=== PATIENT | female | born 1995 | race African-American/Black ===

== ENCOUNTER → 2024-05-01 | Outpatient (CLI) | payer OTHER, SELFPAY | LOC: M IRPRO 10:00 | PROVIDERS: ATTEND Surgery | DX: R59.0 Localized enlarged lymph nodes (principal); Z53.9 Procedure and treatment not carried out, unspecified reason ==

== ENCOUNTER → 2024-09-13 | Outpatient (CLI) | payer OTHER | LOC: M RAD 13:27 | PROVIDERS: ATTEND Radiology Diagnostic Radiology | DX: R59.0 Localized enlarged lymph nodes (principal) ==

== ENCOUNTER 2024-10-04 06:26 | Inpatient (IN) | payer OTHER ==
[~2024-10-04] VITALS: Ht 170.2 cm; Wt 66.0 kg
[2024-10-04] MEDS ORDERED: ISOVUE-370 76% 100ML VIAL As Ordered ONE (07:37)
[2024-10-04 07:40] LABS: BASO % 0.5 % (0.0-1.0); EOS % 0.7 % (0.0-3.0); HEMATOCRIT 29.2 % (36.0-47.0); HEMOGLOBIN 8.5 g/dl (12.0-15.5); LYMPH # 1.8 10^3/uL (1.5-5.0); LYMPH % 32.9 % (24.0-44.0); MEAN CORPUSCULAR HEMOGLOBIN 21.3 pg (27.0-33.0); MEAN CORPUSCULAR HGB CONC 29.1 g/dl (32.0-36.5); MEAN CORPUSCULAR VOLUME 73.2 fl (80.0-96.0); MONO # 0.4 10^3/uL (0.0-0.8); MONO % 7.5 % (2.0-8.0); NEUTROPHILS # 3.2 10^3/uL (1.5-8.5); NEUTROPHILS % 58.2 % (36.0-66.0); PLATELET COUNT, AUTOMATED 326 10^3/uL (150-450); RED BLOOD COUNT 3.99 10^6/uL (4.00-5.40); WHITE BLOOD COUNT 5.6 10^3/uL (4.0-10.0)
[2024-10-04 07:53] LABS: INR 1.04; PARTIAL THROMBOPLASTIN TIME 28.4 SECONDS (24.8-34.2)
[2024-10-04] MEDS: ACETAMINOPHEN *IV* 1,000 MG in IV 1 EA IV ONE (09:58)
[2024-10-04] MEDS ORDERED: FERR325T3 PO (10:32)
[2024-10-04] MEDS ORDERED: HOME MED LIST COMPLETE! XX SCH (10:35)
[2024-10-04] MEDS ORDERED: ACETAMINOPHEN 325 MG TAB PO PRN (11:40)
[2024-10-04] MEDS: ASPIRIN 81MG CHEW TABLET PO ONE (12:18)
[2024-10-04] MEDS: NS (Normal Saline) 0.9% 1,000 ML IV ONE (12:18)
[2024-10-04] MEDS: ENOXAPARIN 40MG/0.4ML SYRINGE (J1650 PER 10MG) SC SCH (12:19)
[2024-10-04 13:20] LABS: HEMOGLOBIN A1c 5.7 % (4.0-6.0)
[2024-10-04 13:27] LABS: IRON (FE) 12 UG/DL (50-170); PERCENT SATURATION 2.9 % (13.2-45.0); RHEUMATOID FACTOR QUANT < 3.5 IU/ML (<14); TOTAL IRON BINDING CAPACITY 409 UG/DL (250-425)
[2024-10-04 13:28] LABS: BLOOD UREA NITROGEN 13 MG/DL (9-23); CALCIUM LEVEL 8.6 MG/DL (8.5-10.1); CARBON DIOXIDE LEVEL 25 MMOL/L (20-31); CHLORIDE LEVEL 103 MMOL/L (98-107); CHOLESTEROL LEVEL 128 MG/DL (<200); CHOLESTEROL RISK RATIO 3.47 (<5); CREATININE FOR GFR 0.74 MG/DL (0.55-1.30); GLOMERULAR FILTRATION RATE > 60.0 (>60); GLUCOSE, FASTING 80 MG/DL (60-100); HDL CHOLESTEROL 36.8 MG/DL (>40); LDL CHOLESTEROL 79.8 MG/DL (<100); NON-HDL-C 91.2 MG/DL; POTASSIUM SERUM 3.6 MMOL/L (3.5-5.1); SODIUM LEVEL 141 MMOL/L (136-145); TRIGLYCERIDES LEVEL 57 MG/DL (<150)
[2024-10-04 13:29] LABS: FERRITIN 2.7 NG/ML (7.3-270.7); FOLATE 8.36 NG/ML (>5.4)
[2024-10-04 13:30] LABS: VITAMIN B12 LEVEL 397 PG/ML (211-911)
[2024-10-04 13:31] LABS: C REACTIVE PROTEIN QUANTITATIV < 0.50 MG/DL (<1.0)
[2024-10-04] MEDS: DOCUSATE SODIUM 100MG CAPSULE PO SCH (20:55)
[2024-10-04] MEDS: ATORVASTATIN 20 MG TAB PO SCH (21:00)
[2024-10-05] MEDS: FERROUS SULFATE 325MG TAB PO SCH (08:06)
[2024-10-05] MEDS: CLOPIDOGREL 75 MG TAB PO SCH (08:06)
[2024-10-05] MEDS: ASPIRIN 81MG ENTERIC TABLET PO SCH (08:07)
[2024-10-05] MEDS: NS (Normal Saline) 0.9% 1,000 ML IV ONE (08:44)
[2024-10-05 08:56] LABS: BASO % 0.6 % (0.0-1.0); EOS # 0.1 10^3/uL (0.0-0.5); EOS % 1.5 % (0.0-3.0); HEMATOCRIT 28.8 % (36.0-47.0); HEMOGLOBIN 8.2 g/dl (12.0-15.5); LYMPH # 2.2 10^3/uL (1.5-5.0); LYMPH % 41.3 % (24.0-44.0); MEAN CORPUSCULAR HEMOGLOBIN 21.1 pg (27.0-33.0); MEAN CORPUSCULAR HGB CONC 28.5 g/dl (32.0-36.5); MEAN CORPUSCULAR VOLUME 74.2 fl (80.0-96.0); MONO # 0.3 10^3/uL (0.0-0.8); MONO % 6.3 % (2.0-8.0); NEUTROPHILS # 2.6 10^3/uL (1.5-8.5); NEUTROPHILS % 50.1 % (36.0-66.0); PLATELET COUNT, AUTOMATED 323 10^3/uL (150-450); RED BLOOD COUNT 3.88 10^6/uL (4.00-5.40); WHITE BLOOD COUNT 5.3 10^3/uL (4.0-10.0)
[2024-10-05] MEDS ORDERED: ASPIRIN 81MG CHEW TABLET PO SCH (09:00)
[2024-10-05] MEDS ORDERED: CLOP75TA2 PO (10:52)
[2024-10-05] MEDS ORDERED: ASPI81TAEC PO (10:52)
[2024-10-05] MEDS ORDERED: ATOR1TAB19 PO (10:52)
[2024-10-05 11:15] VITALS: BP 116/61
[2024-10-05 11:18] VITALS: O2SAT 100
[2024-10-05 11:35] LABS: DRVV SCREEN 36.6 SECONDS
[2024-10-05 11:39] VITALS: TEMP 98.8
[2024-10-05 11:47] LABS: PTT LUPUS TYPE ANTICOAG SCREEN 0.9 (0-1.20)
[2024-10-05 14:33] LABS: SSA SJOGRENS A <1.0 NEG AI (<1.0 NEG); SSB SJOGRENS B <1.0 NEG AI (<1.0 NEG)
[2024-10-05 15:22] LABS: HOMOCYST(E)INE SERUM 10.9 umol/L (<10.4)
[2024-10-05 22:43] LABS: CARDIOLIPIN IGA ANTIBODY < 2.0 APL-U/mL (<20.0); CARDIOLIPIN IGG ANTIBODY < 2.0 GPL-U/mL (<20.0); CARDIOLIPIN IGM ANTIBODY 2.3 MPL-U/mL (<20.0)
[2024-10-06 13:43] LABS: ANA SCREEN, IFA NEGATIVE (NEGATIVE)
[2024-10-07 17:57] LABS: ANCA SCREEN Negative (Negative)
[2024-10-09 18:57] LABS: FACTOR V111 ACTIVITY, CLOTTING 120 % normal (50-180); FACTOR VIII APTT 28 sec (23-32); RISTOCETIN COFACTOR 117 % normal (42-200); VW FACTOR ANTIGEN 111 % (50-217)
== END 2024-10-05 11:50 | disposition home or self-care (01) | DRG 66 ==
LOC: EDBD 06:26 → M ED 06:26 → M ED INP 11:38
PROVIDERS: ADMIT Internal Medicine Nephrology; ATTEND Internal Medicine Nephrology
DX: I63.9 Cerebral infarction, unspecified (principal); D50.9 Iron deficiency anemia, unspecified; Z79.899 Other long term (current) drug therapy

== ENCOUNTER 2025-08-10 08:26 | Day surgery (SDC) | payer OTHER ==
[~2025-08-10] VITALS: Ht 167.6 cm; Wt 68.7 kg
[~2025-08-10 08:26] MED LIST: ASPI81TAEC PO; ATOR1TAB19 PO; CLOP75TA2 PO; ECOT81TA5 PO; FERR325T3 PO; NAPR-1405 PO
[2025-08-10] MEDS ORDERED: LIDOCAINE 2% 100 MG/5 ML SDV (FOR ANES.) As Ordered ONE (08:59)
[2025-08-10] MEDS ORDERED: MIDAZOLAM INJ 2 MG/2 ML VIAL As Ordered ONE (09:00)
[2025-08-10] MEDS: TRIAMCINOLONE ACETONIDE SUSP 40MG/ML 1ML VIAL As Ordered ONE (10:37)
[2025-08-10] MEDS: KETOROLAC 30 MG/ML 1 ML VIAL IV ONE (11:10)
[2025-08-10 12:05] VITALS: BP 120/79; TEMP 98; O2SAT 100
[2025-08-10] MEDS: PERCOCET 5MG/325MG TAB PO ONE (12:05)
== END 2025-08-10 12:33 | disposition home or self-care (01) ==
LOC: M SDC 08:26
PROVIDERS: ATTEND Orthopaedic Surgery
DX: M24.612 Ankylosis, left shoulder (principal); D64.9 Anemia, unspecified; Z79.82 Long term (current) use of aspirin; Z86.73 Personal history of transient ischemic attack (TIA), and cerebral infarction without residual deficits
CPT/HCPCS: 23700; 81025; J0665; J1885; J2250; J3010; J3301

== ENCOUNTER 2025-08-13 12:59 | Outpatient (CLI) | payer OTHER ==
[~2025-08-13] VITALS: Ht 167.6 cm; Wt 68.2 kg
[~2025-08-13 12:59] MED LIST changes: +ALBUTEROL SULFATE 2.5 MG/0.5 ML INH CONCENTRATE NEB SOLN INH PRN; +EPINEPHrine INJ 1 MG/ML 1ML AMP IM PRN; +diphenhydrAMINE 50 MG/ML VIAL IV PRN
[2025-08-13 13:15] VITALS: BP 146/95; O2SAT 100
[2025-08-13] MEDS: IRON SUCROSE 200MG IVP IV ONE (13:25)
[2025-08-13 13:56] VITALS: BP 119/73; O2SAT 100
== END 2025-08-13 13:58 | disposition home or self-care (01) ==
LOC: M INFU 12:59
DX: D50.9 Iron deficiency anemia, unspecified (principal)
CPT/HCPCS: 96374; J1756

== ENCOUNTER 2025-08-20 13:15 | Outpatient (CLI) | payer OTHER ==
[~2025-08-20] VITALS: Ht 167.6 cm; Wt 70.0 kg
[2025-08-20 13:30] VITALS: BP 121/67; O2SAT 99
[2025-08-20] MEDS: IRON SUCROSE 200MG IVP IV ONE (13:36)
[2025-08-20 14:00] VITALS: BP 115/69; O2SAT 99
== END 2025-08-20 14:10 | disposition home or self-care (01) ==
LOC: M INFU 13:15
DX: D50.9 Iron deficiency anemia, unspecified (principal)
CPT/HCPCS: 96374; J1756

== ENCOUNTER 2025-08-27 12:59 | Outpatient (CLI) | payer OTHER ==
[2025-08-27 13:30] VITALS: BP 124/75; O2SAT 100
[2025-08-27] MEDS: IRON SUCROSE 200MG IVP IV ONE (13:32)
[2025-08-27 13:56] VITALS: BP 124/69; O2SAT 100
== END 2025-08-27 13:59 | disposition home or self-care (01) ==
LOC: M INFU 12:59
DX: D50.9 Iron deficiency anemia, unspecified (principal)
CPT/HCPCS: 96374; J1756